=== PATIENT | male | born 1945 | race Caucasian/White ===

== ENCOUNTER → 2020-06-10 | Outpatient (CLI) | payer OTHER ==
--- NOTE | 2020-06-11 11:56 | CT ---
Procedure: CT LUNG SCREENING Exam Date: June 10, 2020. Ordering Provider: Odette Singh Clinical Indication: LUNG SCREEN current cigarette smoker. 1 pack per day. Number of years not known. This patient meets eligibility criteria for low-dose CT lung cancer screening. Comparison: None. Technique: Using a multislice scanner, sequential helical axial imaging was obtained in the thorax, 2.5 mm thickness, 2.5 mm separation, from the level of the thoracic inlet through the lung bases without IV contrast. A low dose protocol was utilized for BMI less than 30: BMI: 21.6. CTDI: 1.76 mGy. 120. kVp. 45 mA. DLP 69 mGy-cm. 2D sagittal and coronal reconstructed images, 6.0 mm thickness, were obtained. This exam was performed according to our departmental dose optimization program which includes use of automated exposure control, adjustment of the mA and/or kV according to patient size and/or use of iterative reconstruction technique. Nodule measurements under 10 mm are given as mean value of 3 axes diameters. FINDINGS: Lungs and large airways: Scattered parenchymal blebs mostly paraseptal and subpleural in the upper lung mckay. Focal pleural parenchymal scarring inferior lingula. Tiny regions of focal thickening in the bilateral major fissures. Pleural parenchymal scarring inferior lingula. No abnormal nodules and no mass. No focal infiltrate. Pleura and space: No acute process. Mediastinum and pramod: evaluation limited by low dose technique and lack of IV contrast. Pericardial surgical clips. Coronary artery bypass graft hardware. Small lymph nodes but no dominant soft tissue mass. Sternotomy wires in the sternum . Heart and great vessels: Atherosclerotic calcifications aorta and several brachiocephalic vessels. Chest wall, lower neck, axillae: Evaluation also limited by same factors as described above. Unremarkable. Upper abdomen: Evaluation limited by low-dose technique. No free air and no free fluid in the included peritoneal space. Osseous structures: Evaluation limited by low dose MIP technique. Multiple levels of early spondylosis in the thoracic spine. Minimal levoscoliosis. IMPRESSION: 1. Emphysematous changes upper more than middle lung cmkay. No abnormal nodule and no mass. No focal infiltrate. [facility] Best Practice Recommendations: please see below for Lung RADS category and FOLLOW-UP.* *Lung RADS category Category 1 - No nodule or definitely benign nodules (probability of malignancy less than 1%). Follow-up: Continue annual screening with Low Dose Chest CT in 12 months. Electronically signed by: Mckay Antony MD 06/11/2020 11:54 AM CDT
== END ==
LOC: CT 10:30
PROVIDERS: ATTEND Family Medicine
DX: Z87.891 Personal history of nicotine dependence (principal); Z12.2 Encounter for screening for malignant neoplasm of respiratory organs; J43.9 Emphysema, unspecified